=== PATIENT | female | born 1940 | race Caucasian/White ===

== ENCOUNTER → 2024-06-19 10:17 | Outpatient (REF) | payer MEDICARE, BC, SELFPAY | LOC: RAD 10:17 | PROVIDERS: ATTENDING PHYSICIAN Nurse Practitioner Family; FAMILY PHYSICIAN Family Medicine | DX: R05.3 Chronic cough (principal) | CPT/HCPCS: 71046 ==

== ENCOUNTER → 2024-07-16 12:02 | Outpatient (REF) | payer MEDICARE, BC, SELFPAY ==
[2024-07-16 12:47] LABS: % Basophils 0.6 % (0-2); % Immature Granulocytes 0.2 % (0-0.5); % Lymphocytes 21.9 % (20.5-51.1); % Monocytes 8.9 % (1.7-9.3); % Neutrophils 67.4 % (42.2-75.2); Absolute Eosinophils 0.1 10^3/uL (0-0.7); Absolute Lymphocytes 1.1 10^3/uL (1.2-3.4); Absolute Monocytes 0.5 10^3/uL (0.1-0.6); Absolute Neutrophils 3.5 10^3/uL (1.4-6.5); Hemoglobin 12.5 g/dL (12.0-16.0); Mean Corp Hgb Conc. 32.9 g/dL (33.0-37.0); Mean Corpuscular Hgb 31.6 pg (27.0-31.0); Mean Corpuscular Volume 96.2 fL (81.0-99.0); Mean Platelet Volume 9.6 fL (7.4-10.4); Nucleated Red Blood Cells % 0 %; Platelet Count 218 10^3/uL (130-400); Red Blood Cell Count 3.95 10^6/uL (4.20-5.40); Red Cell Dist. Width 12.9 % (11.5-14.5); White Blood Cell Count 5.2 10^3/uL (4.8-10.8)
[2024-07-16 13:11] LABS: ALT (SGPT) 30 U/L (0-35); AST (SGOT) 43 U/L (14-36); Albumin 4.5 g/dl (3.5-5.0); Alkaline Phosphatase 60 U/L (38-126); Blood Urea Nitrogen 21 mg/dl (7-17); Calcium 9.5 mg/dl (8.4-10.2); Carbon Dioxide 28 mmol/L (22-30); Chloride 99 mmol/L (98-107); Glucose 90 mg/dl (70-99); HDL Cholesterol 64 mg/dl; LDL Cholesterol, Calculated 139 mg/dl; Potassium 4.6 mmol/L (3.5-5.1); Sodium 135 mmol/L (135-145); Total Bilirubin 1.2 mg/dl (0.2-1.3); Total Cholesterol 223 mg/dl (50-199); Total Protein 7.3 g/dl (6.3-8.2); Triglyceride 100 mg/dl (10-149); Very Low Density Lipoprotein 20 mg/dl (0-30); eGFR > 60.00
== END ==
LOC: REG 12:02
PROVIDERS: ATTENDING PHYSICIAN Family Medicine
DX: G45.8 Other transient cerebral ischemic attacks and related syndromes (principal); I10 Essential (primary) hypertension; E78.5 Hyperlipidemia, unspecified; R94.5 Abnormal results of liver function studies; E87.5 Hyperkalemia; R79.9 Abnormal finding of blood chemistry, unspecified; R74.01 Elevation of levels of liver transaminase levels; Z79.899 Other long term (current) drug therapy
CPT/HCPCS: 36415; 80053; 80061; 85025